=== PATIENT | female | born 1990 | race Caucasian/White ===

== ENCOUNTER 2017-05-26 14:44 | Day surgery (SDC) | payer MEDICAID, SELFPAY ==
[2017-05-26] VITALS (9 sets, daily range): BP systolic 118–133; BP diastolic 59–76; PULSE 73–90; RESP 16; TEMP 36.1–36.4; O2SAT 95–99; BMI 23.5
[2017-05-26] MEDS: Doxycycline 100 MG CAPSULE 200 MG PO (15:27)
[2017-05-26] MEDS: Ketorolac 30 MG/ML Syringe IV (15:30)
[2017-05-26] MEDS: HYDROmorphone 1 MG/ML Syringe IV (15:30)
--- NOTE | 2017-05-26 15:30 | POC_PTH ---
PATIENT: JOSE DAVID BANGURA LOC: [facility] [place] U#:[id number] AGE/SX: 27/F ROOM: RE05/26/[address]: Dr. Sofie Drake MD : 1990 BED: DIS: 05/26/2017 SPEC #: [id number] RECD: 05/27/17 11:10 STATUS: RAMBO HARRIETT #: [id number] BRIAN: 05/26/17 15:[address]: Sofie Drake DEPT: SURGICAL PATHOLOGY RECD BY: Anupam Lamb Tissues: Product of conception, NOS Procedures: Surgery Specimen Level IV HEADER OPERATION: Dilation and curettage, suction PRE-OP DIAGNOSIS: Incomplete TISSUE SUBMITTED: Products of conception MICROSCOPIC DIAGNOSIS Products of conception: Decidua, gestational endometrium and immature chorionic villi (products of conception). THOMAS:russ 05/28/17 MICROSCOPIC DESCRIPTION Slides are reviewed. GROSS DESCRIPTION Received in fixative is one container labeled with the patient's name and designated products of conception. The specimen consists of multiple pieces of pink, hemorrhagic soft tissue that in aggregate measure 5.5 x 6 x 3 cm. tissue is not identified. The specimen is totally submitted in one cassette. / SJ:russ 05/27/17 TC:5 CPT: 47042
[2017-05-26 15:33] LABS: Hematocrit 39.7 % (37-47); Hemoglobin 12.9 g/dl (12.0-15.0); Mean Corp Hgb Conc 32.5 g/gl (32-36); Mean Corpuscular Hgb 29.7 pg (27.0-32.0); Mean Corpuscular Volume 91.5 fL (81-99); Mean Platelet Vol. 13.6 fl (6.2-12.0); Platelet Count 109 K/mm3 (150-450); RBC Distribution Width SD 43.5 fl (35.1-43.9); Red Blood Count 4.34 M/mm3 (4.2-5.4); White Blood Count 8.9 K/mm3 (4.4-11.0)
[2017-05-26 15:45] LABS: Scan Indicated on CBC? Y/N NO
--- NOTE | 2017-05-26 15:57 | PCM.DC.D&C ---
Discharge Diet: No Restrictions Discharge Activity: Return to Normal Activity, May Shower, May Take a Tub Bath - in 2 weeks. Return to work on:: 05/28/17 May shower in (days): 1 Call your doctor if your incision/area has: Continuous Slow Oozing, Sudden Increased Bleeding, Increased Pain/ Swelling Call your doctor if you observe: Fever of 101 or Higher, Using more than one pad per hour - for 2 hrs in a row Instructions: Discharge Instructions for Dilation and Curettage (D and C) Allergies/Adverse Reactions: Allergies milk Allergy (Verified 12/08/15 12:51) Abd cramps/diarrhea strawberry Allergy (Verified 12/08/15 12:50) Anaphylaxis Medications to take at Discharge Vits [Prenatabs FA ] 1 tablet PO DAILY 01/18/14 Citalopram [Celexa] 20 mg PO DAILY 12/08/15 Doxycycline 100 mg PO BID 1 Days #2 cap 05/26/17 Ibuprofen [Motrin] 600 mg PO Q6H PRN #30 tab 05/26/17 The following prescriptions were given: Doxycycline 100 mg PO BID 1 Days #2 cap Ibuprofen [Motrin] 600 mg PO Q6H PRN #30 tab PRN Reason: Pain Primary Care Physician: Sofie Drake MD [Primary Care Provider] - Please Follow Up With: Sofie Drake MD - [phone] When: 2-4 weeks in our office or as needed
--- NOTE | 2017-05-26 16:17 | OP.PCM_ITS ---
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 A bimanual examination was done and confirmed the uterus to be 8 weeks size and mid position. A weighted speculum was placed in the vagina and the anterior lip of the cervix was grasped with a single-tooth tenaculum. The cervix was dilated serially. A 8 mm suction curette was placed to the uterine fundus and the suction was created. Several passes were made to remove clots and products of conception. When minimal tissue was returning a gentle sharp curettage was then done of the uterine cavity. The uterine cry was appreciated and another gentle pass was made with the suction curette. At this point there is no active bleeding from the uterus and minimal blood and no further products of conception were removed. The instruments removed from the cervix and the cervix was observed and no active bleeding was identified. The tenaculum was removed off the cervix and hemostasis of the tenaculum site was assured. Made of the instruments removed from the vagina and the vaginal sweep was completed by me. Sponge and needle counts were correct. The patient was taken to the recovery room in stable condition. Findings: 8 week size uterus, normal cervix and vagina. Specimen: Products of conception Grafts/Implants Used: None - Complications None - Admit VTE Documentation VTE Present on Admission: No VTE Mechan Device Prophylaxis: None VTE Pharm Prophylaxis ordered?: No Reason prophylaxis not ordered:: Procedure Not Indicated
[2017-05-26] MEDS: Doxycycline 100 MG CAPSULE PO (17:23)
== END 2017-05-26 18:04 | disposition home or self-care (01) ==
LOC: SDC 14:46 → AC 14:49
PROVIDERS: Anesthesiology; Family Provider Obstetrics & Gynecology; PCP Obstetrics & Gynecology; Visit Provider Obstetrics & Gynecology
PROC: (CPT 59812; principal; 2017-05-26 15:15)
DX: O03.9 Complete or unspecified spontaneous abortion without complication (principal)
CPT/HCPCS: 59812; 85027; 86850; 86900; 88305; J7120; J2405

== ENCOUNTER 2018-04-19 05:10 | Inpatient (IN) | payer MEDICAID, SELFPAY ==
[2018-04-19 06:35] VITALS: BMI 26.6
[2018-04-19] MEDS: Lactated Ringers 1,000 ML 50 ML IV ×2 (07:20→09:02)
--- NOTE | 2018-04-19 07:58 | PCM.HP.OB ---
- Problem List (1) History of thrombocytopenia Status: Acute (2) Abnormal ultrasound Status: Acute (3) Asthma Status: Acute (4) History of marijuana use Status: Acute (5) Genital herpes Status: Acute (6) Depression Status: Acute (7) Anxiety Status: Acute History Date of Admission: 04/19/18 Final MARTÍN: 05/07/18 Gestational age: 37 Weeks and 3 Days History of this : This is a 27 year-old, G [5], P [2021], at 37w2d weeks gestational age presented to L&D with contractions since yesterday. Arrived at 4cm and progressed to 5cm. Decision for admission. Allergies milk Allergy (Verified 04/19/18 07:21) Abd cramps/diarrhea strawberry Allergy (Verified 04/19/18 07:21) Anaphylaxis Home Medications: Home Medications Vits [Prenatabs FA ] 1 tablet PO DAILY 01/18/14 Acyclovir 400 04/19/18 Venlafaxine HCl ER 150 mg 04/19/18 Smoking Status: Never smoker Alcohol: None Substance Use Type: Marijuana - Beginning of Number of Fetus(es): 1 Heart Tracin moderated variability, accels, no decels TOCO: contractions every 2-3 minutes, lasting 60 seconds, moderate to palpation. History Past Pregnancies: Past Pregnancies Delivery Date Name GA/Weeks Outcome Route Weight Infant Gender Labor Length Anesthesia Delivery Location Provider FOB Labs: GBS negative Rubella Immune RPR negative HBsAG negative O positive GC/CT negative HIV negative Expected Infant Delivery Method: Spontaneous Vaginal Review of Systems Constitutional: Denies: Chills, Fever, Weight Change Eyes: Denies: Blurred vision, Vision Change Cardiovascular: Denies: Chest Pain, Palpitations Gastrointestinal: Denies: Abdominal Pain, Nausea, Vomiting Genitourinary: Denies: Dysuria Psychiatric: Denies: Anxiety, Depression, Homicidal Ideations, Suicidal Ideations Physical Exam General: Alert, Oriented x3, No apparent distress HEENT: Atraumatic, PERRLA, Normocephalic. Negative for: Thyromegaly, Lymphadenopathy Cardiovascular: Regular rate, Regular Rhythm, No murmurs Lungs: Clear to auscultation, No rhonchi, No wheeze Abdomen: Non Tender, Gravid Extremities:: No edema Neurological: Deep Tendon Reflexes 2+/4 and Symmetrical. Negative for: Clonus BROADCAST TRAFFIC COORDINATOR: Normal external genitalia Estimated gestational size: Appropriate for gestational size Presentation: Cephalic Cervix Dilation (cm): 5 Station: -1 Effacement (%): 80 Assessment/Plan All Active Problems History of thrombocytopenia (Acute) Abnormal ultrasound (Acute) Positive urine drug screen (Acute) Asthma (Acute) History of marijuana use (Acute) Genital herpes (Acute) Depression (Acute) Anxiety (Acute) This is a 27 year-old, G [5], P [2021], at weeks gestational age. A:Active Labor Category 1 FHT P: 1) Admit to L&D 2) Routine labs, urine tox screen 3) BP elevated, Pre-e labs, urine protein creatine ratio 4) Epidural for pain management. 5) notified of patient status and admission. Transfer of care to .
[2018-04-19 08:04] LABS: Hematocrit 36.2 % (37-47); Hemoglobin 11.4 g/dl (12.0-15.0); Mean Corp Hgb Conc 31.5 g/gl (32-36); Mean Corpuscular Hgb 27.3 pg (27.0-32.0); Mean Corpuscular Volume 86.8 fL (81-99); Mean Platelet Vol. 13.5 fl (6.2-12.0); Platelet Count 137 K/mm3 (150-450); RBC Distribution Width CV 13.7 % (11.6-14.6); RBC Distribution Width SD 42.7 fl (35.1-43.9); Red Blood Count 4.17 M/mm3 (4.2-5.4); Scan Indicated on CBC? Y/N NO; White Blood Count 10.6 K/mm3 (4.4-11.0)
[2018-04-19 08:09] LABS: AST(SGOT) 21 U/L (15-37); Alanine Aminotransfer ALT/SGPT 17 U/L (13-56); Creatinine, Serum 0.75 mg/dL (0.55-1.02); EST Glomerular Filtration Rate 98 mL/min (>60); Est Glom Filt Rate - Afr Amer 119 mL/min (>60); Estimated Creatinine Clearance 110.54 ml/min; Uric Acid 5.7 mg/dL (2.6-6.0)
[2018-04-19 08:32] LABS: Prothrombin Time (Protime)PT. 12.9 SECONDS (11.7-14.9)
[2018-04-19 08:33] LABS: Partial Thromboplast Time 25.1 Seconds (24.1-36.2)
[2018-04-19] MEDS: fentaNYL-bupivacaine (epidural) 100 ML BAG EPIDURAL (08:37)
[2018-04-19 08:44] LABS: Protein:Creat Ratio 292 mg/g CRE (0-200)
[2018-04-19 08:49] LABS: Amphetamine Urine VISTA NEGATIVE (<1000 ng/mL); Barbiturate Urine VISTA NEGATIVE (< 200 ng/mL); Benzodiazepine Urine VISTA NEGATIVE (< 200 ng/mL); Cocaine Urine VISTA NEGATIVE (< 300 ng/mL); Ecstacy Urine VISTA NEGATIVE (< 500 ng/mL); Methadone Urine VISTA NEGATIVE (< 300 ng/mL); PCP Urine VISTA NEGATIVE (< 25 ng/mL); THC Urine VISTA NEGATIVE (< 50 ng/mL); Vista UDS pH Range 6
[2018-04-19] MEDS: Oxytocin 30 units/NS 500 ml 30 UNITS/500 ML IV.SOLN 334 UNITS IV (09:57)
[2018-04-19] MEDS: Oxytocin 30 units/NS 500 ml 30 UNITS/500 ML IV.SOLN 167 UNITS IV (10:27)
--- NOTE | 2018-04-19 10:37 | PCM.OB.VAG ---
Vaginal Delivery Maternal Presentation: Active Labor Amniotic Membrane Rupture Type: Artificial Amniotic Fluid Description: Clear Final MARTÍN: 05/07/18 Gestational age: 37 Weeks and 3 Days Date of Procedure: 04/19/18 Pre-Operative Diagnosis: Term gestation, spontaneous labor Post-Operative Diagnosis: same, live male Surgery/ Procedure Performed: Spontaneous Vaginal Delivery Type of Anesthesia: Epidural Description of Procedure: of live male infant born without complications. Delayed cord clamping performed. Presentation: Vertex Placental Delivery Description: Spontaneous Placenta Disposition: [facility] Cord Vessel Description: 3 Vessels Nuchal Cord Compression: With compression Cord Entanglement: Around neck x 1, loose Drain: Kay to straight drain Estimated Blood Loss: 250 A gender: Male (1 minute): 8 (5 minute): 8 Episiotomy Description: None Laceration: None Medications given after delivery: IV Pitocin Complications: None
--- NOTE | 2018-04-19 15:25 | NURSING ---
Received report from Anali Seymour RN. I will assume care of patient at this time.
[2018-04-19 16:00] VITALS: BP 139/93; PULSE 90; RESP 16; TEMP 36.3
[2018-04-19 19:40] VITALS: BP 134/86; PULSE 90; RESP 16; TEMP 36.5; O2SAT 96
[2018-04-20] MEDS: Ibuprofen 600 MG Tablet PO ×2 (00:05→17:44)
[2018-04-20 00:15] VITALS: BP 145/85; PULSE 88; RESP 16; TEMP 37.1; O2SAT 97
[2018-04-20 04:10] VITALS: BP 148/86; PULSE 72; RESP 16; TEMP 36.6; O2SAT 72
--- NOTE | 2018-04-20 07:59 | PCM.PN.OB ---
Patient Problems: Active and Suspected Problems History of thrombocytopenia (Acute) Abnormal ultrasound (Acute) Positive urine drug screen (Acute) Asthma (Acute) History of marijuana use (Acute) Genital herpes (Acute) Depression (Acute) Anxiety (Acute) Subjective: pt seen at bedside, doing well. pt reports good pain control. lochia mild. Breast feeding well. - Physical Exam General: Alert, Oriented x3 Abdomen: Soft, Non Tender, Non-Distended, - - fundus firm Extremities: No Calf Tenderness Vital Signs Temp Pulse Resp BP Pulse Ox 97.8 F 72 16 148/86 H 72 04/20/18 04:10 04/20/18 04:10 04/20/18 04:10 04/20/18 04:10 04/20/18 04:10 Oxygen Delivery Method Room Air Weight: 77.111 kg Body Mass Index (BMI) 26.6 Intake and Output for Last 24 Hours 04/18/18 04/19/18 04/20/18 23:59 23:59 23:59 Output Total 1100 / 1100 Balance -1100 / -1100 Laboratory Tests Past 24 Hrs 04/19/18 04/19/18 04/19/18 07:20 07:20 07:20 WBC 10.6 RBC 4.17 L Hgb 11.4 L Hct 36.2 L MCV 86.8 MCH 27.3 MCHC 31.5 L RDW 13.7 RDW Differential 42.7 Plt Count 137 L MPV 13.5 H PT 12.9 INR 1.0 APTT 25.1 Creatinine Estim Creat Clear Calc Est GFR (MDRD) Af Amer Est GFR (MDRD) Non-Af Uric Acid AST ALT U Random Total Protein Urine Creatinine Protein/Creatinin Ratio Urine Opiates Screen Urine Methadone Screen Ur Barbiturates Screen Ur Phencyclidine Scrn Ur Amphetamines Screen U Methamphetamin-MDMA U Benzodiazepines Scrn Urine Cocaine Screen U Cannabinoids Screen Ur Drug Screen Comment Blood Type O POSITIVE Antibody Screen NEGATIVE 04/19/18 04/19/18 04/19/18 07:20 07:30 08:00 WBC RBC Hgb Hct MCV MCH MCHC RDW RDW Differential Plt Count MPV PT INR APTT Creatinine 0.75 Estim Creat Clear Calc 110.54 Est GFR (MDRD) Af Amer 119 Est GFR (MDRD) Non-Af 98 Uric Acid 5.7 AST 21 ALT 17 U Random Total Protein 35.0 H Urine Creatinine 120.00 Protein/Creatinin Ratio 292 H Urine Opiates Screen NEGATIVE Urine Methadone Screen NEGATIVE Ur Barbiturates Screen NEGATIVE Ur Phencyclidine Scrn NEGATIVE Ur Amphetamines Screen NEGATIVE U Methamphetamin-MDMA NEGATIVE U Benzodiazepines Scrn NEGATIVE Urine Cocaine Screen NEGATIVE U Cannabinoids Screen NEGATIVE Ur Drug Screen Comment Blood Type Antibody Screen Medical Necessity - Tobacco Use Smoking Status: Never smoker Assessment/Plan All Active Problems History of thrombocytopenia (Acute) Abnormal ultrasound (Acute) Positive urine drug screen (Acute) Asthma (Acute) History of marijuana use (Acute) Genital herpes (Acute) Depression (Acute) Anxiety (Acute) PPD#1, doing well routine care pain mgmt possible dc home if discharged
--- NOTE | 2018-04-20 08:03 | DCINST_ITS ---
Discharge Diet: No Restrictions Discharge Activity: Return to Normal Activity, May not drive while taking narcotic pain medications., May Shower May resume sexual activity in: 4-6 weeks Additional Activity Instructions:: Nothing in the vagina for 4-6 weeks. You may return to work/school in 6 weeks. Call your doctor if your incision/area has: Continuous Slow Oozing, Sudden Increased Bleeding, Increased Pain/ Swelling, Increased Redness, Foul Smelling Discharge Additional Instructions: If you experience any of the following, contact your healthcare provider. * Bleeding that soaks a pad every hour for 2 hours * Fever 100.4 or higher * Unrelieved incision or abdominal pain * Swelling, redness, discharge or bleeding from your incision or episiotomy site * Your incision begins to separate * Problems urinating (including inability to urinate or burning while urinating). * Visual changes * Severe headache * Flu-like symptoms * Pain or redness in one of both of your breasts * Pain, warmth, tenderness or swelling in your legs, especially the calf area * Frequent nausea and vomiting * Symptoms of depression or anxiety If you experience any of the following, call 911 or go to the nearest Emergency Room. * Chest pain * Problems breathing * Seizure activity * Partial or complete paralysis of a body part, slurred speech, weakness or drooping of the face, or a sudden inability to walk or hold your balance Allergies/Adverse Reactions: Allergies milk Allergy (Verified 04/19/18 07:21) Abd cramps/diarrhea strawberry Allergy (Verified 04/19/18 07:21) Anaphylaxis Medications to take at Discharge Acyclovir 400 mg PO DAILY 04/19/18 Ibuprofen [Motrin] 600 mg PO Q6H PRN PRN #30 tablet 04/20/18 Venlafaxine XR [Effexor Xr] 150 mg PO DAILY capsule 04/20/18 The following prescriptions were given: Ibuprofen [Motrin] 600 mg PO Q6H PRN PRN #30 tablet PRN Reason: Mild Pain (1-310) When: Call to make an appointment with your doctor in 6 weeks. If you had elevated Blood Pressure or 4th degree laceration you will need to be seen in 2 weeks. Primary Care Physician: Care Physician,No Primary [Primary Care Provider] - Test Results: Test results from this visit will be discussed in further detail at your follow- up appointment, if applicable.
[2018-04-20 08:30] VITALS: BP 143/92; PULSE 92; RESP 16; TEMP 36.4
[2018-04-20] MEDS: Acetaminophen 500 MG Tablet 1000 MG PO (08:44)
[2018-04-20] MEDS: Venlafaxine XR 150 MG Capsule PO (08:45)
[2018-04-20] MEDS: Senna/Docusate Sodium 1 Tablet PO (08:45)
[2018-04-20 14:10] VITALS: BP 139/80; PULSE 92; RESP 12; TEMP 36.3
[2018-04-20 20:50] VITALS: BP 138/83; PULSE 93; RESP 16; TEMP 36.6; O2SAT 97
[2018-04-21] MEDS: Acetaminophen 500 MG Tablet 1000 MG PO ×2 (00:13→10:35)
[2018-04-21 02:13] VITALS: BP 128/76; PULSE 95; RESP 18; TEMP 36.4
--- NOTE | 2018-04-21 07:59 | PCM.PN.OB ---
Patient Problems: Active and Suspected Problems History of thrombocytopenia (Acute) Abnormal ultrasound (Acute) Positive urine drug screen (Acute) Asthma (Acute) History of marijuana use (Acute) Genital herpes (Acute) Depression (Acute) Anxiety (Acute) Subjective: pt seen at bedside, doing well. pt reports good pain control. lochia mild. Breast feeding well. infant in [facility] but Blood sugars improving - Physical Exam General: Alert, Oriented x3 Abdomen: Soft, Non Tender, Non-Distended, - - fundus firm Extremities: No Calf Tenderness Vital Signs Temp Pulse Resp BP Pulse Ox 97.5 F L 95 18 128/76 H 97 04/21/18 02:13 04/21/18 02:13 04/21/18 02:13 04/21/18 02:13 04/20/18 20:50 Oxygen Delivery Method Room Air Weight: 77.111 kg Body Mass Index (BMI) 26.6 Intake and Output for Last 24 Hours 04/19/18 04/20/18 04/21/18 23:59 23:59 23:59 Output Total 1100 / 1100 Balance -1100 / -1100 Medical Necessity - Tobacco Use Smoking Status: Never smoker Assessment/Plan All Active Problems History of thrombocytopenia (Acute) Abnormal ultrasound (Acute) Positive urine drug screen (Acute) Asthma (Acute) History of marijuana use (Acute) Genital herpes (Acute) Depression (Acute) Anxiety (Acute) PPD#2, doing well routine care pain mgmt dc to home/hotel status today
[2018-04-21 10:25] VITALS: BP 138/78; PULSE 103; RESP 18; TEMP 36.1; O2SAT 98
[2018-04-21] MEDS: Senna/Docusate Sodium 1 Tablet PO (10:35)
[2018-04-21] MEDS: Venlafaxine XR 150 MG Capsule PO (10:35)
[2018-04-21 14:25] VITALS: BP 124/79; PULSE 107; RESP 18; TEMP 36.1; O2SAT 97
--- NOTE | 2018-04-21 15:00 | CASEMGMT ---
Social Work Labor and Delivery Unit Date of Referral: 04-19-2018 Time of Intervention: 0811 Date of intervention: 04-21-2018 Time of intervention: 1500 Referral Source: Dr. Harrison Reason for referral: maternal drug use of marijuana, positive in . ? History obtained from:?Medical records and mother of baby (MOB) Araseli Oakes, and father of baby (FOB) Anupam Loaiza. ?Note, baby admitted to [facility]. Educated MOB that this staff writer is the social work administrator for hospital of delivery and for continuity of care of families on the SC[facility], this staff writer also provides social to families on the [facility]. ?MOB states understanding and appreciation of working with one person ? Household composition:??MOB and FOB report to live together, along with 2 older children. ?Intend to take baby to this home at discharge. ?MOB reports home situation is safe and adequate. ? ? Patient's parent/guardian status:?MOB is 26 and FOB is 25, together for 6 years. ?MOB denies any form of abuse, control, or intimidation. ?MOB and FOB now share 3 children together. ?Minor children include: Alberto Loaiza, born 10. (female) Jenn Loaiza, born 8. (male) *, Katharine Loaiza, born . (male) ? Medical History:?MOB G4, P2 to 3 after delivery of infant. ?MOB shares history of one loss, estimating loss to be about 15 weeks gestation though baby stopped growing at about 9 weeks. ? care for with Katharine started at 6 weeks gestation. ?MOB with history of HSV. ?Baby born with apgars of 8 and 8, delivered at 37 weeks gestation. ?? care records indicate baby was found to have borderline unilateral ventriculomegaly. ? ? Educational Status:??MOB graduated high school, reports ability to read, write, and denies learning comprehension issues. ?MOB reports has taken some classes through [employer] for coding and billing. ? Health Care Coverage:?[place] Medicaid.?? ? Financial Status:?MOB does not work outside of the home. 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 ? ? Supplies: ?MOB reports to have breast pump, car seat, crib, bassinet, clothing, diapers, and wipes for this baby. ?MOB is hopeful to be able to breast feed. ? ? Childcare/Caregiver(s):??MOB stays at home to care for the children.? ? Transportation:?MOB and FOB report to have reliable transportation.? ? Programs/Agencies Involved:?MOB reports to have medicaid and food through [facility] in [facility]. ??MOB reports plan to get WIC and knows how to go about this. ??MOB reports daughter is about to start [employer] school, has an IEP for therapy services. ??MOB agreeable to [facility] referrals for both sons (reports that older son seems a bit behind in speech). ??MOB denies any history of involvement with children services or legal issues.?? ? Behavioral Health Issues:?Mental Health:??MOB reports history of depression after the of daughter. ?MOB reports did not seek out treatment immediately as felt that should be able to manage emotions on own, and also hard to admit that struggling with depression and anxiety. ?MOB reports in 2015 did have ?conversation with doctor about suicidal thoughts, that at that time indicated plan for suicide would be to be spontaneous such as just sometime driving self off the road. ?MOB reports had no intent to kills self and saying out loud to the doctor was an eye parts finisher that MOB needed help. ?MOB reports then sought out treatment with a physician and was placed on Effexor. ?MOB reports this medication works well. ?MOB denies any thoughts, plans, intent for suicide or self harm during this or since that time in 2015. ??MOB reports did go off of Effexor for a short time during this , due to MOB's prescription running out. ?MOB reports became physically sick so went back on it and decided to maintain on this during the . ??MOB plans to remain on Effexor in the period. ??MOB reports has tried counseling in the past but didn't really care for it. ??MOB prefers to just continue with medications. ??Substance Use History:??MOB reports outside of does drink alcohol socially. ?MOB denies abuse or dependence on this. ??MOB reports history of marijuana use, and use during . ??Records indicate that MOB use throughout the , about every 2 weeks for issues related to pain and depression. ?MOB reports to this staff writer the last use was a couple of weeks before positive drug screen in March. ?Records indicate MOB last used about 2 weeks ago. ??MOB denies use of other illicit or narcotics during . ?MOB denies tobacco use. ?MOB reports was a heavy caffeine drinker, so much that MOB could not identify how many caffeinated drinks MOB consumes in a day. ???Drug screens: ?maternal screens negative on 04-19-18 and 09-16-17. ?MOB with a positive screen for marijuana on 04-11-2018. ??Baby's urine is negative and meconium is pending. ?Family History:??MOB reports had a rough childhood growing up and that there are a lot of anger issues in her family. ?? ? Family Stressors:?MOB with marijuana use in , reports use due to pain and depression and anxiety issues. ??Older daughter just getting started in head start (a positive) but is need of various therapy service, being placed on an IEP in school. ?MOB reports just getting a relationship again with her mother. ???Stress from extended hospital stay and not being able to see older children while staying in the hospital with Katharine. ?Other children have been running fevers. ?? ? Support Systems:?MOB reports FOB is a strong support, to talk openly with FOB about things. ?FOB reports to have high anxiety himself, so understanding of MOB's situation. ??MOB reports FOB's mother and a cousin live locally and are good support, and help out with the kids. ?? ? Assessment Met with MOB and FOB together and then with MOB privately. ??MOB and FOB appearing relaxed with each other. ?FOB presenting as supportive to MOB, and MOB talking openly about private matters in front of FOB. ??MOB pleasant, cooperative, held good eye contact, and talkative. ?MOB mood anxious. ?Affect full. ???MOB reports to have needed supplies for baby, intends to stay on antidepressants, but declines any type of counseling referral. ?MOB reports plan to abstain from marijuana at this time, at least while breast feeding (social work administrator discussed non-recommendation of using marijuana while ). ?Addressed with MOB plan for safe care of baby relating to substance use: ?At this time plans to abstain from marijuana. ?MOB reports would not use in front of kids and reports could also leave children with someone who has not been using. ?FOB reports he does not use marijuana as this exacerbates FOB's anxiety. ???MOB and FOB made aware of need for children services referral. ?Answered questions the parents had. ??Note, MOB does agree to [facility] referral, which is a positive as this will be another support to MOB with the children and transition in the period. ?? ? Plan MOB is being discharged home. Social work will follow family through [facility] while baby is on the SCN. Resources given to MOB for home going, including mental health and substance use treatment options. 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 ? MOB agrees to [facility] [place]. ? ?Response to Plan: MOB?does express understanding of proposed plan. -DIANE Kennedy, FUR SEWER
[2018-04-21] MEDS: Ibuprofen 600 MG Tablet PO (18:07)
--- NOTE | 2018-04-21 19:55 | NURSING ---
To hotel status
--- NOTE | 2018-04-22 12:17 | CASEMGMT ---
Social Work Labor and Delivery Unit Called [facility] ([facility] at [phone]. Spoke with Roxanne in the screening department. Referral given due to substance exposed . Brief maternal and histories provided. [facility] asks that when meconium comes back to please call results into said agency. Submitted [facility] referral via the [facility]'s secure web based referral form. No other services requested or indicated. -DIANE Kennedy, STAFF READINESS OFFICER
== END 2018-04-21 19:55 | disposition home or self-care (01) | DRG 560 ==
PROVIDERS: Advanced Practice Midwife; Admitting Provider Obstetrics & Gynecology; Family Provider Obstetrics & Gynecology; Referring Provider Obstetrics & Gynecology; Visit Provider Obstetrics & Gynecology
DX: O69.81X0 Labor and delivery complicated by cord around neck, without compression, not applicable or unspecified (principal); O99.324 Drug use complicating childbirth; F12.90 Cannabis use, unspecified, uncomplicated; Z3A.37 37 weeks gestation of pregnancy; Z37.0 Single live birth
CPT/HCPCS: 59050; 80307; 82565; 82570; 84156; 84450; 84460; 84550; 85027; 85610; 85730; 86850; 86900; 99218; J7120; G0378